=== PATIENT | female | born 1945 | race Hispanic/Latino ===

== ENCOUNTER 2017-05-18 03:46 | Emergency (ER) | payer MEDICARE ==
[2017-05-18] MEDS ORDERED: HYOSCYAMINE SULFATE 0.125 MG TAB.SUBL SL ONE (04:18)
== END 2017-05-18 07:05 | disposition home or self-care (01) ==
LOC: EDH 03:46
DX: R19.7 Diarrhea, unspecified (principal); R10.9 Unspecified abdominal pain; Z88.7 Allergy status to serum and vaccine
CPT/HCPCS: 82270; 87046; 87205; 87324

== ENCOUNTER 2017-06-04 14:28 | Emergency (ER) | payer BC, MEDICARE ==
[2017-06-04] MEDS ORDERED: ACETAMINOPHEN EXTRA STRENGTH 500 MG TABLET ONE (15:12)
[2017-06-04] MEDS ORDERED: CYCLOBENZAPRINE HCL 10 MG TABLET ONE (15:12)
== END 2017-06-04 16:37 | disposition home or self-care (01) ==
LOC: EDH 14:28
DX: S16.1XXA Strain of muscle, fascia and tendon at neck level, initial encounter (principal); S63.591A Other specified sprain of right wrist, initial encounter; S53.491A Other sprain of right elbow, initial encounter; Z90.710 Acquired absence of both cervix and uterus; Z90.49 Acquired absence of other specified parts of digestive tract; V49.40XA Driver injured in collision with unspecified motor vehicles in traffic accident, initial encounter; Y93.89 Activity, other specified; Y92.89 Other specified places as the place of occurrence of the external cause; Y99.8 Other external cause status
CPT/HCPCS: 72040; 73080; 73110